=== PATIENT | male | born 1960 | race Caucasian/White ===

== ENCOUNTER 2020-06-04 20:12 | Emergency (ER) | payer OTHER ==
[2020-06-05 00:10] LABS: BASOPHIL 0.6 % (0-2); EOSINOPHIL 2.1 % (0-5); HCT 26.5 % (42.0-52.0); HGB 8.6 g/dl (13.2-18.0); LYMPHOCYTE 14.6 % (15-48); MCH 30.1 pg (25.0-31.0); MCHC 32.5 g/dL (32.0-36.0); MCV 92.7 fL (78.0-100.0); MONOCYTE 7.1 % (0-12); MPV 10.1 fL (6.0-9.5); NEUTROPHIL 75.2 % (41-80); NRBC 0; PLT 392 K/uL (150-400); RBC 2.86 M/uL (4.70-6.00); RDW 12.8 % (11.5-14.0); WBC 11.2 K/uL (4.0-10.5)
[2020-06-05 00:39] LABS: CREATININE 4.93 mg/dL (0.67-1.17)
[2020-06-05 00:40] LABS: ALBUMIN 2.8 g/dL (3.4-5.0); BILIRUBIN - TOTAL 0.2 mg/dL (0.2-1.0); BUN/CREAT RATIO (CALC) 12.6 RATIO; GLOBULIN (CALCULATION) 4.2 g/dL; MAGNESIUM 1.7 mg/dL (1.8-2.4); POTASSIUM 5.1 mmol/L (3.5-5.1)
== END 2020-06-05 01:54 | disposition home or self-care (01) ==
LOC: FER 20:12
PROVIDERS: Emergency Medicine
DX: G25.3 Myoclonus (principal); M62.838 Other muscle spasm; E11.22 Type 2 diabetes mellitus with diabetic chronic kidney disease; N18.9 Chronic kidney disease, unspecified; F03.90 Unspecified dementia, unspecified severity, without behavioral disturbance, psychotic disturbance, mood disturbance, and anxiety; Z86.73 Personal history of transient ischemic attack (TIA), and cerebral infarction without residual deficits; Z86.19 Personal history of other infectious and parasitic diseases
CPT/HCPCS: 36415; 80053; 83735; 85025; 93005; J2060